=== PATIENT | female | born 1950 | race Caucasian/White ===

== ENCOUNTER 2016-10-11 22:43 | Emergency (ER) | payer OTHER ==
[2016-10-11 22:49] VITALS: BP 164/124; PULSE 72; RESP 16; TEMP 97.9; O2SAT 94
[2016-10-11] MEDS ORDERED: TETRACAINE 0.5% 15 ML OPHT.BTL LEFTEYE ONE (23:00)
[2016-10-11] MEDS ORDERED: FLUORESCEIN SODIUM 1 MG STRIP OP ONE (23:00)
[2016-10-11] MEDS ORDERED: PROPARACAINE 0.5% 15 ML OPHT DROP ONE (23:05)
--- NOTE | 2016-10-11 23:05 | EDPHY ---
H & P Stated Complaint: L eye pain Time Seen by Provider: 10/11/16 22:51 HPI/ROS: HPI The patient presents with left eye redness and pain which has been present for the last 3 weeks and is getting progressively worse. She saw her doctor about 3 weeks ago when her symptoms began and was diagnosed with allergic conjunctivitis. She was using some sort of antihistamine drops without any improvement. She saw her doctor's office again today and was diagnosed with bacterial conjunctivitis and started on ciprofloxacin which she has been using throughout the course of the day, approximately every 2 hours. Since she has began using the drops her symptoms have become worse. She is reporting more tearing of the eye and more pain. She has no prior history of conjunctivitis. Her vision is not affected. She denies any photophobia. She denies foreign body sensation. REVIEW OF SYSTEMS Constitutional: No fever, no chills. Eyes: Discharge is present, see HPI Skin: No rashes. Neurological: No headache. PMHx: Hypothyroidism PHYSICAL General Appearance: Alert, no distress Eyes: Pupils equal and round no pallor or injection EYE EXAM Visual Acuity: noted from Nurse's notes. Pupils: equal round and reactive to light EOMI Skin: no proptosis, no periorbital erythema or swelling, no vesicles Conjunctivae: Diffusely injected, no discharge Cornea: exam with fluoroscein shows punctate uptake throughout cornea Anterior chamber:normal, no hyphema or hypopyon ENT, Mouth: Mucous membranes moist Respiratory: Breathing comfortably Neurological: A&O, moves all extremities Skin: Warm and dry, no rashes Psychiatric: Patient is oriented X 3, there is no agitation Source: Patient Exam Limitations: No limitations - Personal History Current Tetanus/Diphtheria Vaccine: Yes Current Tetanus Diphtheria and Acellular Pertussis (TDAP): Yes - Medical/Surgical History Hx Asthma: No Hx Chronic Respiratory Disease: No Hx Diabetes: No Hx Cardiac Disease: No Hx Renal Disease: No Hx Cirrhosis: No Hx Alcoholism: No Hx HIV/AIDS: No Hx Splenectomy or Spleen Trauma: No Other PMH: HYPOTHYROID - Social History Smoking Status: Never smoked Constitutional: Initial Vital Signs Temperature (C) 36.6 C 10/11/16 22:47 Heart Rate 72 10/11/16 22:47 Respiratory Rate 16 10/11/16 22:47 Blood Pressure 164/124 H 10/11/16 22:47 O2 Sat (%) 94 10/11/16 22:47 O2 Delivery Mode Room Air Allergies/Adverse Reactions: No Known Allergies Allergy (Unverified 10/11/16 22:46) Home Medications: Medication Instructions Recorded Levothyroxine 08/13/14 Aleve 05/18/16 Erythromycin 0.5% 1 jair OP QID #1 opht.oint 10/11/16 Medical Decision Making Differential Diagnosis: This is a 66-year-old female with 3 weeks of a red left eye associated with mild pain and tearing. She has been treated as an allergic conjunctivitis for the last several weeks and saw her doctor today and was initiated on ciprofloxacin eyedrops with worsening of her symptoms. On exam, she has injected conjunctiva with punctate fluorescein uptake diffusely, anterior chamber is normal. Differential diagnosis includes epidemic keratoconjunctivitis, viral conjunctivitis, bacterial conjunctivitis. Given that the ciprofloxacin eyedrops or irritating her, I will switch her to erythromycin eyedrops. I have instructed her to do cool compresses to help alleviate her symptoms. I would like her to see Ophthalmology within the next week for repeat eye exam. - Data Points Medications Given: Discontinued Medications Fluorescein Sodium ([id number]) 1 mg OP EDNOW ONE Stop: 10/11/16 23:01 Last Admin: 10/11/16 23:05 Dose: 1 mg Proparacaine HCl (Alcaine 0.5%) 1 drops LEFTEYE EDNOW ONE Stop: 10/11/16 23:07 Last Admin: 10/11/16 23:07 Dose: 1 drop Tetracaine HCl (Tetracaine 0.5%) 1 drops LEFTEYE ONCE ONE Stop: 10/11/16 23:01 Last Admin: 10/11/16 23:06 Dose: Not Given Departure - Departure Disposition: Home, Routine, Self-Care Clinical Impression: Keratoconjunctivitis Condition: Good Instructions: Conjunctivitis (ED) Additional Instructions: Please use cool compresses on the eyelid several times a day. Stop taking her antibiotic eye drop and you can start taking the prescription I will give you. 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 Referrals: LEDA CABALLERO [Other] - As per Instructions Cherry Lea MD [Medical Doctor] - As per Instructions Prescriptions: Erythromycin 0.5% 1 jair OP QID #1 opht.oint
[2016-10-11] MEDS ORDERED: PROPARACAINE 0.5% 15 ML OPHT DROP LEFTEYE ONE (23:06)
== END 2016-10-11 23:38 | disposition home or self-care (01) ==
DX: H16.202 Unspecified keratoconjunctivitis, left eye (principal)